=== PATIENT | male | born 1960 | race Caucasian/White ===

== ENCOUNTER → 2020-01-12 | Outpatient (CLI) | payer OTHER ==
--- NOTE | 2020-01-12 16:11 | RAD ---
AP abdomen radiograph 01/12/2020 CLINICAL HISTORY: Abdominal pain. Three AP supine digital radiographs of the abdomen/pelvis were obtained. The abdominal bowel gas pattern is nonobstructive. A moderate amount of stool is seen throughout the colon. No radiopaque calculus is seen. Degenerative changes are seen involving the lower thoracic and throughout the lumbar spine along with both hips. IMPRESSION: Nonobstructive bowel gas pattern. A moderate amount of stool is seen throughout the colon. Electronically signed by: Chao May MD (01/12/2020 4:08 PM) [id number]
== END ==
LOC: PMG 12:15
PROVIDERS: ATTEND Physician Assistant
DX: K59.00 Constipation, unspecified (principal)
CPT/HCPCS: 74019

== ENCOUNTER → 2021-03-19 | Outpatient (CLI) | payer OTHER ==
--- NOTE | 2021-03-19 12:21 | RAD ---
EXAM: Bilateral feet, 3 views. HISTORY: Pain. COMPARISON: None. FINDINGS: 3 views of both feet are obtained. There is suspected subluxation of the left second, third and fourth proximal interphalangeal joints. There are accessory navicular bones. There are small lef t greater than right plantar spurs. There is enthesopathy along the left greater than right Achilles tendon insertions. There are soft tissue calcifications along the posterior aspect of the right ankle . IMPRESSION: 1. Suspected left second through fourth proximal interphalangeal joint subluxation. This may be posit ional or projectional. Correlate with physical exam findings. 2. Left greater than right plantar spurs and enthesopathy at Achilles tendon insertions. Electronically signed by: Kiara Glover MD (03/19/2021 12:18 PM) [id number]
== END ==
LOC: RAD 11:02
PROVIDERS: ATTEND Podiatrist
DX: M77.8 Other enthesopathies, not elsewhere classified (principal); Q74.2 Other congenital malformations of lower limb(s), including pelvic girdle
CPT/HCPCS: 73630-50